=== PATIENT | male | born 1975 | race Caucasian/White ===

== ENCOUNTER 2019-04-04 07:16 | Emergency (ER) | payer BC ==
[2019-04-04 07:36] VITALS: BP 128/73
--- NOTE | 2019-04-04 07:40 | UC ---
Ear Complaint HPI - HPI Summary HPI Summary: 43 yo Type 1 diabetic male presents with a 3 day history of right ear pain. States his hearing is also muffled. Denies associated fever, chills, night sweats nor uri sx. Otherwise he states he feels well. Blood sugars have been well controlled and has a continuous glucose monitor. - History of Current Complaint Chief Complaint: UCEar Stated Complaint: RT EAR COMPLAINT Time Seen by Provider: 04/04/19 07:39 Pain Intensity: 1 Associated Signs/Symptoms: Positive: Hearing Loss - muffled. Negative: Discharge, Foreign Body Sensation, Trauma to Ear, URI Symptoms - Allergies/Home Medications Allergies/Adverse Reactions: Allergies Allergy/AdvReac Type Severity Reaction Status Date / Time No Known Allergies Allergy Verified 04/04/19 07:30 Home Medications: Home Medications Albuterol HFA INHALER* [Ventolin HFA Inhaler*] 1 - 2 puff INH Q4H PRN 04/04/19 [ History Confirmed 04/04/19] Atorvastatin* [Lipitor 10 MG*] mg PO DAILY 04/04/19 [History] Ibuprofen TAB* [Advil TAB*] 200 mg PO Q6H PRN 04/04/19 [History Confirmed ] Insulin GLARGINE(*) [Lantus(*)] 20 units SUBCUT BID 04/04/19 [History Confirmed 04/04/19] Insulin LISPRO* [HumaLOG*] 0 - 25 units SUBCUT QID ACHS PRN 04/04/19 [History Confirmed 04/04/19] Lisinopril TAB* [Prinivil TAB 5 MG*] mg PO DAILY 04/04/19 [History] PMH/Surg Hx/FS Hx/Imm Hx Endocrine History: Diabetes - Type 1 Cardiovascular History: Hypertension - Surgical History Surgical History: None - Family History Known Family History: Positive: Non-Contributory - Social History Alcohol Use: Rare Substance Use Type: None Smoking Status (MU): Never Smoked Tobacco Review of Systems All Other Systems Reviewed And Are Negative: Yes Constitutional: Negative: Fever, Chills, Fatigue Skin: Negative: Rash Eyes: Negative: Eye Redness ENT: Positive: Ear Ache - right. Negative: Sore Throat, Sinus Pain/Tenderness Respiratory: Negative: Shortness Of Breath, Cough Cardiovascular: Negative: Palpitations, Chest Pain Gastrointestinal: Negative: Abdominal Pain, Vomiting, Diarrhea, Nausea Genitourinary: Positive: Negative Motor: Positive: Negative Neurovascular: Positive: Negative Musculoskeletal: Positive: Negative Neurological: Positive: Negative Psychological: Positive: Negative Is Patient Immunocompromised?: No Physical Exam Triage Information Reviewed: Yes Appearance: Well-Appearing, No Pain Distress Vital Signs: Initial Vital Signs Temp 98.2 F 04/04/19 07:28 Pulse 64 04/04/19 07:28 Resp 16 04/04/19 07:28 BP 128/73 04/04/19 07:28 Pulse Ox 97 04/04/19 07:28 Eye Exam: Normal ENT: Positive: Other - Both ears with impacted cerumen. Unable to visualize TM' s. Left external auditory canal normal, right external auditory canal erythematous and moderately swollen. + right anterior auricular tenderness. Neck: Positive: Supple, Nontender, No Lymphadenopathy Respiratory: Positive: Lungs clear, Normal breath sounds Cardiovascular: Positive: RRR, No Murmur Abdomen Description: Positive: Nontender, Soft Musculoskeletal: Positive: ROM Intact Neurological: Positive: Alert Psychological Exam: Normal Skin: Negative: Rashes Ear Complaint Course/Dx - Course Course Of Treatment: Findings consistent with otitis externa, treated with topical ear drops. - Differential Dx/Diagnosis Differential Diagnosis/HQI/PQRI: Otitis Media Provider Diagnosis: Otitis externa, Cerumen impaction Discharge ED - Sign-Out/Discharge Documenting (check all that apply): Patient Departure All imaging exams completed and their final reports reviewed: Yes - Discharge Plan Condition: Stable Disposition: HOME Prescriptions: Neomyc/Polym/HC 1% OTIC SUSP* [Cortisporin Otic Susp 1%*] 4 drop RIGHT EAR TID 7 Days #1 btl Patient Education Materials: Otitis Externa (ED) Referrals: Jose Miguel Olguin MD [Primary Care Provider] - Additional Instructions: Use drops in right ear canal as instructed. Follow-up with your Primary Care Physician for impacted ear wax in both ears within the next week. - Billing Disposition and Condition Condition: STABLE Disposition: Home
== END 2019-04-04 07:55 | disposition home or self-care (01) ==
LOC: UCCORT 07:16
DX: H60.91 Unspecified otitis externa, right ear (principal); H61.23 Impacted cerumen, bilateral; E10.9 Type 1 diabetes mellitus without complications; Z79.4 Long term (current) use of insulin; I10 Essential (primary) hypertension
CPT/HCPCS: 99212; G0463